=== PATIENT | male | born 1975 | race Two or more races ===

== ENCOUNTER 2021-06-20 10:09 | Emergency (ER) | payer OTHER ==
[~2021-06-20] VITALS: Ht 188 cm; Wt 94.3 kg
--- NOTE | 2021-06-20 10:49 | PHYS DOC ---
Past Medical History Additional Past Medical Histor: sinus infections Past Surgical History: Other Additional Past Surgical Histo: knee, back, neck General Adult EDM: Chief Complaint: DIZZY/LIGHT HEADED HPI: HPI: Patient is a 46-year-old male who presents emergency department concerning a sudden onset of chest tightness last night at approximately 11:30 PM that lasted approximately 30 seconds. Patient did not seek care for this problem last night. Patient reports on his way to work today at approximately 740 he had another sudden onset of chest tightness that lasted approximately 30 seconds followed by feelings of dizziness and feeling off. Patient reports his chest tightness resolved, but his dizziness lingered on. Patient denies syncopal or near syncopal episodes. Denies similar previous events, reports a 6-year history of cigarette smoking, does drink alcohol occasionally reporting drinking 3 beers yesterday while watching football games, denies illicit drug use. Patient denies current chest congestion or nasal congestion, denies current chest pains or shortness of breath, denies other physical complaints or physical concerns Review of Systems: Review of Systems: 14 body systems of review of systems have been reviewed. See HPI for pertinent positives and negative responses, otherwise all other systems are negative, nonpertinent or noncontributory. Constitutional: Negative except as outlined in HPI above. Skin: Negative except as outlined in HPI above. Eyes: Negative except as outlined in HPI above. HENT: Negative except as outlined in HPI above. Respiratory: Negative except as outlined in HPI above. Cardiovascular: Negative except as outlined in HPI above. GI: Negative except as outlined in HPI above. : Negative except as outlined in HPI above. Musculoskeletal: Negative except as outlined in HPI above. Integument: Negative except as outlined in HPI above. Neurologic: Negative except as outlined in HPI above. Endocrine: Negative except as outlined in HPI above. Lymphatic: Negative except as outlined in HPI above. Psychiatric: Negative except as outlined in HPI above. Heart Score: C/O Chest Pain: Yes HEART Score for Chest Pain: HEART Score for Chest Pain Response (Comments) Value History Slighlty/Non-Suspicious 0 ECG Normal 0 Age < 45 0 Risk Factors 1 or 2 Risk Factors 1 Troponin < Normal Limit 0 Total 1 Risk Factors: Risk Factors: DM, Current or recent (<one month) smoker, HTN, HLP, family history of CAD, obesity. Risk Scores: Score 0 - 3: 2.5% MACE over next 6 weeks - Discharge Home Score 4 - 6: 20.3% MACE over next 6 weeks - Admit for Clinical Observation Score 7 - 10: 72.7% MACE over next 6 weeks - Early Invasive Strategies Allergies: Allergies: Allergies Coded Allergies Type Severity Reaction Last Updated Verified No Known Drug Allergies 06/20/21 No Physical Exam: PE: Constitutional: Well developed, well nourished, no acute distress, non-toxic appearance. 46-year-old male in no apparent distress. HENT: Normocephalic, atraumatic. Eyes: Conjunctiva normal, no discharge. Neck: Normal range of motion, no stridor. Cardiovascular: No cyanosis appreciated, distal cap refill less than 2 seconds. Heart sounds S1-S2 to auscultation, regular rate and rhythm. Lungs & Thorax: Patient is in no respiratory distress, no audible adventitious lung sounds appreciated. Normal work of breathing, no adventitious lung sounds appreciated per auscultation Abdomen: Nontender, no abnormalities noted. Skin: Warm, dry, no erythema, no rash. Back: No tenderness, no deformities. Extremities: No tenderness, no cyanosis, no clubbing, ROM intact, no edema. Neurologic: Alert and oriented X 3, normal motor function, normal sensory function, no focal deficits noted. Kristie-Hallpike maneuver negative Psychologic: Affect normal, judgement normal, mood normal. Current Patient Data: Vital Signs: Vital Signs Date Time Temp Pulse Resp B/P (MAP) Pulse Ox O2 Delivery O2 Flow Rate FiO2 06/20/21 10:33 98.7 74 20 155/93 (113) 99 Room Air 98.7 EKG: EKG: EKG performed at 1039 by ED nursing staff shows a normal sinus rhythm without other ectopy, heart rate 73 bpm, CO interval 0.166, QTc interval 0.418, no acute STEMI, no ACS, no acute ischemia appreciated, EKG interpreted by ED attending physician Dr. Caputo. Radiology/Procedures: Radiology/Procedures: [] Course & Med Decision Making: Course & Med Decision Making Pertinent Labs and Imaging studies reviewed. (See chart for details) 46-year-old male, vital signs reviewed, resents emerged from concerning chest tightness with dizziness today at approximately 740, symptoms resolved prior to arrival to the emergency department. Will order CBC, CMP, high-sensitivity troponin, proBNP, urinalysis assay, urine drug screen, D-dimer, chest x-ray, EKG. Will evaluate cardio monitoring with blood pressure monitoring O2 sat monitoring. Chest x-ray, CT head. Upon reevaluation of the patient, patient reports all symptoms have resolved without return of similar symptoms during ER stay, lab work unremarkable, EKG unremarkable, chest x-ray and CT head unremarkable. Discussed this with patient strict follow-up with primary care for ongoing evaluation of symptoms. Strict return to ER precautions and concerns. Patient gave verbal understanding of and is amenable to ED discharge planning. Discussed with the patient all findings and diagnostic testing as well as the need to follow-up with their primary care provider for further evaluation and treatment or return to the ED if any new or worsening symptoms. Strict return precautions were also discussed at length, the patient voiced understanding and agreement with the discharge planning. The patient was nontoxic in appearance, in no apparent distress, and hemodynamically stable at the time of disposition. Dragon Disclaimer: [employer] Disclaimer: This electronic medical record was generated, in whole or in part, using a voice recognition dictation system. Departure Departure Impression: Primary Impression: Dizziness Additional Impression: Chest tightness Disposition: 01 HOME / SELF CARE / HOMELESS Condition: GOOD Patient Instructions: Chest Pain (Nonspecific), Dizziness Additional Instructions: You were seen today in the emergency department for chest tightness and dizziness. The EKG done today did not show any concerning findings. Your chest x-ray and CT of your head did not show any concerning findings that would warrant admission into the hospital. Your lab work was within normal limits. Your symptoms had resolved and you did not have any returning chest tightness or dizziness during your ER stay. It is very important that you follow-up with your primary care physician for ongoing evaluation of the symptoms as further work-up on an outpatient basis is warranted for ongoing symptoms. Please return to the emergency department for worsening symptoms, returning symptoms or other concerns. Thank you for visiting our Emergency Department. It was a pleasure taking care of you today in the emergency department and we appreciate you trusting us with your care. If any additional problems come up don't hesitate to return to visit us. Please follow up with your primary care provider so they can plan additional care if needed and know about the problem that you had. If symptoms worsen come back to the Emergency Department. Any concerning symptoms that start such as chest pain, shortness of air, weakness or numbness on one side of the body, running high fevers or any other concerning symptoms return to the ER. You have been given a list of primary care providers and clinics to follow-up with, please choose a primary healthcare provider and establish primary care soon. EMERGENCY DEPARTMENT GENERAL DISCHARGE INSTRUCTIONS Thank you for coming to [facility] Emergency Department (ED) today and trusting us with you care. We trust that you had a positive experience in our Emergency Department. If you wish to speak to the department management, you may call the Director at [phone]. YOUR FOLLOW UP INSTRUCTIONS ARE FOLLOWS: 1. Do you have a private Doctor? If you do not have a private doctor, please ask for a resource list of physicians or clinics that may be able to assist you with follow up care. 2. The Emergency Physicain has interpreted your x-rays. The X-Ray specialist will also review them. If there is a change in the findings, you will be notified in 48 hours when at all possible. 3. A lab test or culture has been done, your results will be reviewed and you will be notified if you need a change in treatment. ADDITIONAL INSTRUCTIONS AND INFORMATION: 1. Your care today has been supervised by a physician who is specially trained in emergency care. Many problems require more than one evaluation for a complete diagnosis and treatment. We recommend that you schedule your follow up appointment as recommended to ensure complete treatment of you illness or injury. If you are unable to obtain follow up care and continue to have a problem, or if your condition worsens, we recommend that you return to the ED. 2. We are not able to safely determine your condition over the phone nor are we able to give sound medical advice over the phone. For these safety reasons, if you call for medical advice we will ask you to come to the ED for further evaluation. 3. If you have any questions regarding these discharge instructions please call the ED at [phone]. SAFETY INFORMATION: In the interest of safety, wellness, and injury prevention; we encourage you to wear your sealbelt, if you smoke; quite smoking, and we encourage family to use a protective helmet for bicycling and other sporting events that present an increased risk for head injury. IF YOUR SYMPTOMS WORSEN OR NEW SYMPTOMS DEVELOP, OR YOU HAVE CONCERNS ABOUT YOUR CONDITION; OR IF YOUR CONDITION WORSENS WHILE YOU ARE WAITING FOR YOUR FOLLOW UP APPOINTMENT; EITHER CONTACT YOUR PRIMARY CARE DOCTOR, THE PHYSICIAN WHOSE NAME AND NUMBER YOU WERE GIVEN, OR RETURN TO THE ED IMMEDIATELY. JOHN KILGORE APRN Jun 20, 2021 10:49
--- NOTE | 2021-06-20 10:53 | EKG ---
[facility] [address] [place] [address] Test Date: 2021-06-20 Test Time: 10:39:34 Pat Name: CECILIA GRANADOS Department: Room: Gender: M Perioperative Nurse: : [id number] Requested By: JOHN KILGORE Order Number: [id number] Reading MD: Rikki Kirby Measurements Intervals [place] Rate: 73 P: 45 GA: 166 QRS: 51 QRSD: 102 T: 39 QT: 376 QTc: 418 Interpretive Statements SINUS RHYTHM Electronically Signed On 06-20-2021 10:53:01 [employer] by Rikki Kirby
[2021-06-20 11:11] LABS: BILIRUBIN,URINE NEGATIVE (NEG); CLARITY,URINE CLEAR; COLOR,URINE YELLOW; NITRITE,URINE NEGATIVE (NEG); PROTEIN,URINE NEGATIVE (NEG-TRACE); UROBILINOGEN,URINE 0.2 mg/dL (0.2 mg/dL)
[2021-06-20 11:16] LABS: BARBITURATES NEG (NEG); BENZODIAZEPINES NEG (NEG); CANNABINOIDS NEG (NEG); COCAINE NEG (NEG); METHADONE NEG (NEG); OPIATES NEG (NEG); PHENCYCLIDINE NEG (NEG)
--- NOTE | 2021-06-20 11:17 | RAD ---
XR CHEST 1V History: Chest tightness Comparison: None available Technique: Portable AP radiograph of the chest. Findings: The lungs are adequately inflated. There are few linear opacities in the left lung base. No significa nt consolidation. No pleural effusion or pneumothorax. Cardiac mediastinal silhouette and pulmonary v asculature are within normal limits. Osseous structures and soft tissues are unremarkable. Impression: 1. A few linear opacities in the left lung base likely represent atelectasis. Electronically signed by: Dom Alvarenga MD (06/20/2021 11:14 AM) [facility]
--- NOTE | 2021-06-20 11:19 | RAD ---
EXAMINATION: CT HEAD/BRAIN WO CLINICAL HISTORY: Dizziness/lightheadedness TECHNIQUE: Serial axial images without IV contrast were obtained from the vertex to the foramen magnu m. CT Dose Reduction Employed: One or more of the following individualized dose reduction techniques wer e utilized for this examination: 1. Automated exposure control 2. Adjustment of the mA and/or kV ac cording to patient size 3. Use of iterative reconstruction technique. COMPARISON: None FINDINGS: Acute Change: No evidence of an acute infarct or other acute parenchymal process. Hemorrhage: No evidence of acute intracranial hemorrhage. Mass Lesion/Mass Effect: No evidence of intracranial mass or extraaxial fluid collection. No signific ant mass effect. Parenchyma: Parenchyma otherwise within normal limits for age. Ventricles: Ventricles within normal limits for age. Paranasal Sinuses and Skull Base: Visualized paranasal sinuses clear. Visualized skull base and soft tissues unremarkable. IMPRESSION: No evidence of acute intracranial abnormality. Electronically signed by: Ta Meehan DO (06/20/2021 11:17 AM) [id number]
[2021-06-20 11:29] LABS: AMPHETAMINE/METHAMPHETAMINE NEG (NEG)
[2021-06-20 11:31] LABS: BASO # 0.1 x10^3/uL (0.0-0.2); BASO % 1 % (0-3); EOS # 0.1 x10^3/uL (0.0-0.7); EOS % 2 % (0-3); HEMATOCRIT 44.7 % (39.0-53.0); HEMOGLOBIN 15.1 g/dL (13.0-17.5); LYMPH # 1.5 x10^3/uL (1.0-4.8); LYMPH % 20 % (24-48); MEAN CORPUSCULAR HEMOGLOBIN 31 pg (25-35); MEAN CORPUSCULAR HGB CONC 34 g/dL (31-37); MEAN CORPUSCULAR VOLUME 91 fL (79-100); MONO # 0.5 x10^3/uL (0.0-1.1); MONO % 7 % (0-9); NEUT # 5.1 x10^3/uL (1.8-7.7); NEUT % 70 % (31-73); PLATELET COUNT 278 x10^3/uL (140-400); RED BLOOD COUNT 4.93 x10^6/uL (4.30-5.70); RED CELL DISTRIBUTION WIDTH 12.9 % (11.5-14.5); WHITE BLOOD COUNT 7.4 x10^3/uL (4.0-11.0)
[2021-06-20 11:38] LABS: BACTERIA,URINE 0 /HPF (0-FEW); RBC,URINE 0 /HPF (0-2); WBC,URINE OCC /HPF (0-4)
[2021-06-20 11:45] LABS: GFR 81.2; POTASSIUM 4.3 mmol/L (3.5-5.1)
[2021-06-20 11:50] LABS: ALBUMIN 4.1 g/dL (3.4-5.0); ALBUMIN/GLOBULIN RATIO 1.1 (1.0-1.7); TOTAL BILIRUBIN 0.3 mg/dL (0.2-1.0); TOTAL PROTEIN 7.8 g/dL (6.4-8.2)
[2021-06-20 14:06] VITALS: BP 139/89
== END 2021-06-20 14:06 | disposition home or self-care (01) ==
LOC: ER 10:09
DX: R07.89 Other chest pain (principal); R42 Dizziness and giddiness
CPT/HCPCS: 36415; 70450; 71045; 80053; 80307; 81001; 82553; 83880; 84484; 85025; 85379; 93005; 99285-25